=== PATIENT | female | born 1990 | race American Indian/Alaskan Native ===

== ENCOUNTER 2018-04-14 16:31 | Emergency (ER) | payer SELFPAY ==
[2018-04-14 16:44] VITALS: BP 107/75; PULSE 80; RESP 18; TEMP 99.2; O2SAT 97
[2018-04-14] MEDS ORDERED: Amoxicillin-Clav 875-125 mg Tab PO STA (17:15)
[2018-04-14] MEDS ORDERED: Tetanus/Diphtheria Toxoids 0.5 ml Syringe IM ONE ×2 (17:15→17:21)
--- NOTE | 2018-04-14 17:18 | C.PDOC ---
Time Seen by Provider: 04/14/18 17:12 Chief Complaint (Nursing): Upper Extremity Problem/Injury Past Medical History Vital Signs: Last Vital Signs Temp 99.2 F 04/14/18 16:42 Pulse 80 04/14/18 16:42 Resp 18 04/14/18 16:42 BP 107/75 04/14/18 16:42 Pulse Ox 97 04/14/18 16:42 - Social History Hx Alcohol Use: No Hx Substance Use: No ED Course And Treatment O2 Sat by Pulse Oximetry: 97 Disposition - Disposition
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
[2018-04-14] MEDS ORDERED: Amoxicillin-Clav 875-125 mg Tab PO ONE (17:21)
[2018-04-14] MEDS ORDERED: Bacitracin 500 Units/gm Oint Foilpak UD ONE ×2 (17:25→17:29)
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
== END 2018-04-14 17:26 | disposition home or self-care (01) ==
LOC: C.ER 16:31
DX: S61.052A Open bite of left thumb without damage to nail, initial encounter (principal); Y04.1XXA Assault by human bite, initial encounter; Z23 Encounter for immunization

== ENCOUNTER 2018-06-13 02:22 | Emergency (ER) | payer SELFPAY ==
[2018-06-13 02:52] LABS: SQUAMOUS EPITHIAL 6 /hpf (0-5); URINE BILIRUBIN NEGATIVE (NEGATIVE); URINE BLOOD NEGATIVE (NEGATIVE); URINE CLARITY Clear (Clear); URINE COLOR Yellow (YELLOW); URINE GLUCOSE (UA) NORMAL (Normal); URINE LEUKOCYTE ESTERASE NEG Leu/uL (Negative); URINE PROTEIN NEGATIVE (NEGATIVE); URINE UROBILINOGEN NORMAL mg/dL (0.2-1.0)
[2018-06-13] MEDS ORDERED: Sodium Chloride 0.9% 1,000 ML IV ONE (02:57)
[2018-06-13] MEDS ORDERED: Iohexol 240 (50 ml) PO ONE (02:57)
[2018-06-13] MEDS ORDERED: Sodium Chloride 0.9% 1,000 ML ONE (03:10)
[2018-06-13] MEDS ORDERED: Iohexol 240 (50 ml) ONE (03:10)
[2018-06-13 03:13] LABS: HCG,QUALITATIVE URINE NEGATIVE (NEGATIVE)
[2018-06-13 03:39] LABS: BASO % 0.7 % (0.0-2.0); EOS % 0.7 % (0.0-4.0); LYMPH # 1.9 K/uL (1.0-4.3); LYMPH % 30.8 % (20.0-40.0); MEAN CELL VOLUME 85.3 fL (81.0-99.0); MEAN CORPUSCULAR HEMOGLOBIN 28.9 pg (27.0-31.0); MEAN CORPUSCULAR HGB CONC 33.8 g/dL (33.0-37.0); MEAN PLATELET VOLUME 7.3 fL (7.2-11.7); MONO # 0.5 K/uL (0.0-0.8); MONO % 7.8 % (0.0-10.0); NEUT # 3.6 K/uL (1.8-7.0); NRBC % 0.1 % (0.0-2.0); RBC 4.16 Mil/uL (3.80-5.20); RED CELL DISTRIBUTION WIDTH 14.4 % (11.5-14.5)
--- NOTE | 2018-06-13 03:39 | C.PDOC ---
History Of Present Illness 27 year old female presents to the ED c/o LLQ abdominal pain associated with nausea and vomiting that started today. Patient denies fever, chills, diarrhea, dysuria, hematuria, back pain, rash. Chief Complaint (Nursing): Abdominal Pain History Per: Patient History/Exam Limitations: no limitations Onset/Duration Of Symptoms: Hrs Current Symptoms Are (Timing): Still Present Location Of Pain/Discomfort: LLQ Radiation Of Pain To:: None Quality Of Discomfort: "Pain" Associated Symptoms: Nausea, Vomiting. denies: Diarrhea, Urinary Symptoms Exacerbating Factors: None Alleviating Factors: None Recent travel outside of the [place]: No Additional History Per: Patient Abnormal Vaginal Bleeding: No Past Medical History Reviewed: Historical Data, Nursing Documentation, Vital Signs Vital Signs: Last Vital Signs Temp 98.4 F 06/13/18 02:33 Pulse 70 06/13/18 02:33 Resp 20 06/13/18 02:33 BP 114/76 06/13/18 02:33 Pulse Ox 98 06/13/18 05:48 - Medical History PMH: No Chronic Diseases Surgical History: No Surg Hx Family History: States: Unknown Family Hx - Social History Hx Alcohol Use: No Hx Substance Use: No - Immunization History Hx Tetanus Toxoid Vaccination: Yes Hx Influenza Vaccination: No Hx Pneumococcal Vaccination: No Review Of Systems Constitutional: Negative for: Fever, Chills Cardiovascular: Negative for: Chest Pain, Palpitations Respiratory: Negative for: Cough, Shortness of Breath Gastrointestinal: Positive for: Nausea, Vomiting, Abdominal Pain. Negative for : Diarrhea Skin: Negative for: Rash Neurological: Negative for: Weakness, Numbness Physical Exam - Physical Exam Appears: Non-toxic, No Acute Distress Skin: Normal Color, Warm, Dry Head: Atraumatic, Normacephalic Eye(s): bilateral: Normal Inspection Oral Mucosa: Moist Neck: Normal ROM, Supple Chest: Symmetrical Cardiovascular: Rhythm Regular Respiratory: Normal Breath Sounds, No Rales, No Rhonchi, No Wheezing Gastrointestinal/Abdominal: Soft, Tenderness (localized LLQ), No Guarding, No Rebound Extremity: Normal ROM, No Tenderness, No Swelling Neurological/Psych: Oriented x3, Normal Speech Gait: Steady ED Course And Treatment - Laboratory Results Result Diagrams: 06/13/18 03:33 06/13/18 03:13 O2 Sat by Pulse Oximetry: 98 (ON RA) Pulse Ox Interpretation: Normal Medical Decision Making Medical Decision Making: Plan: * CT abd/pelvis * Labs * IV fluids * Toradol 30 mg IVP * UA Disposition Counseled Patient/Family Regarding: Diagnosis - Disposition Referrals: [facility] [Outside] Disposition: HOME/ ROUTINE Disposition Time: 05:44 Condition: STABLE Prescriptions: Dicyclomine [Bentyl] 10 mg PO QID #14 cap Instructions: Acute Abdomen (Belly Pain) Forms: [employer] (Wolof) - POA Present On Arrival: None - Clinical Impression Clinical Impression: Abdominal pain, Enteritis - Scribe Statement The provider has reviewed the documentation as recorded by the Scribe August Domínguez All medical record entries made by the Scribe were at my direction and personally dictated by me. I have reviewed the chart and agree that the record accurately reflects my personal performance of the history, physical exam, medical decision making, and the department course for this patient. I have also personally directed, reviewed, and agree with the discharge instructions and disposition.
[2018-06-13 03:42] LABS: CALCIUM 8.8 mg/dl (8.6-10.4); GFR NON-AFRICAN AMERICAN > 60; LIPASE 113 U/L (23-300)
[2018-06-13 03:45] LABS: ALB/GLOB RATIO 1.1 (1.0-2.1); ALBUMIN 3.6 g/dL (3.5-5.0); ALT/SGPT 13 U/L (9-52); AST/SGOT 30 U/L (14-36); BLOOD UREA NITROGEN 12 mg/dL (7-17)
[2018-06-13] MEDS ORDERED: Iodixanol 320 mg/ml 150 ml Bottle IV ONE (04:25)
[2018-06-13 06:02] VITALS: BP 118/74; PULSE 74; RESP 16; TEMP 98.2; O2SAT 99
--- NOTE | 2018-06-13 11:18 | CT ---
Date of service: 06/13/2018 PROCEDURE: CT Abdomen and Pelvis with contrast HISTORY: LLQ ABD PAIN/TENDERNESS COMPARISON: None. TECHNIQUE: Following oral and intravenous contrast administration, a CT examination of the abdomen and pelvis performed from the domes of the diaphragms to the symphysis pubis with reformatted datasets provided not only axial but also sagittal and coronal series. Contrast dose: Visipaque 320, 100 cc Radiation dose: Total exam DLP = 1047.24 mGy-cm. This CT exam was performed using one or more of the following dose reduction techniques: Automated exposure control, adjustment of the mA and/or kV according to patient size, and/or use of iterative reconstruction technique. FINDINGS: LOWER THORAX: Unremarkable. LIVER: Unremarkable. No gross lesion or ductal dilatation. GALLBLADDER AND BILE DUCTS: Unremarkable. PANCREAS: Unremarkable. No gross lesion or ductal dilatation. SPLEEN: Unremarkable. ADRENALS: Unremarkable. No mass. KIDNEYS AND URETERS: Unremarkable. No hydronephrosis. No solid mass. VASCULATURE: Unremarkable. No aortic aneurysm. BOWEL: No small or large bowel obstruction evident. Shotty central mesenteric lymph nodes are appreciated with solitary right cecal/ascending colon lymph node also not grossly enlarged. No mesenteric edema is associated however limited mesenteric adenitis is difficult to completely exclude. No colonic diverticular disease including the sigmoid segment which is not inflamed. [id number] fecal loading identified. APPENDIX: Normal appendix. PERITONEUM: Unremarkable. No free fluid. No free air. LYMPH NODES: Unremarkable. No enlarged lymph nodes. BLADDER: Unremarkable. REPRODUCTIVE: Unremarkable. BONES: No acute fracture. OTHER FINDINGS: None. IMPRESSION: [id number]-md-[id number] fecal loading is appreciated of the colon. There is also pattern is may reflect early mesenteric adenitis. Clinically correlate further. No other potential acute abdominal or pelvic findings.
== END 2018-06-13 06:02 | disposition home or self-care (01) ==
LOC: C.ER 02:22
DX: K52.9 Noninfective gastroenteritis and colitis, unspecified (principal); R10.32 Left lower quadrant pain
CPT/HCPCS: 74177; 80053; 81001; 83690; 84703; 85025; 96372; 96374; 99284; J0500; J1885; J7030; Q9966; Q9967

== ENCOUNTER 2018-08-13 16:25 | Emergency (ER) | payer OTHER ==
[2018-08-13 16:37] VITALS: BMI 38.2
[2018-08-13 16:38] VITALS: RESP 20
--- NOTE | 2018-08-13 18:03 | C.PDOC ---
History Of Present Illness 28 year old female presents to the ED for evaluation of abdominal pain which began two days ago. Patient was evaluated for similar abdominal pain in May [address] scan. After her symptoms improved, patient was discha rged with instructions to follow up. Patient states her pain improved so she did not follow up. She returns to the ED for evaluation because her pain has reoccurred. She denies fever, chills, nausea, vomiting, and diarrhea. <Soo Rogers - Last Filed: 08/13/18 19:07> History Per: Patient History/Exam Limitations: no limitations Onset/Duration Of Symptoms: Days Current Symptoms Are (Timing): Still Present Location Of Pain/Discomfort: Diffuse Radiation Of Pain To:: None Quality Of Discomfort: "Pain" Associated Symptoms: denies: Fever, Chills, Nausea, Vomiting, Diarrhea Additional History Per: Patient <Soo Rogers - Last Filed: 08/13/18 19:07> <Daniel Gonsalez - Last Filed: 08/13/18 20:11> Chief Complaint (Nursing): Abdominal Pain Past Medical History Reviewed: Historical Data, Nursing Documentation, Vital Signs Vital Signs: Last Vital Signs Temp 98.8 F 08/13/18 16:37 Pulse 75 08/13/18 16:37 Resp 20 08/13/18 16:37 BP 107/74 08/13/18 16:37 Pulse Ox 100 08/13/18 16:37 - Medical History PMH: No Chronic Diseases Surgical History: No Surg Hx Family History: States: Unknown Family Hx - Social History Hx Alcohol Use: No Hx Substance Use: No - Immunization History Hx Tetanus Toxoid Vaccination: Yes Hx Influenza Vaccination: No Hx Pneumococcal Vaccination: Yes <Soo Rogers - Last Filed: 08/13/18 19:07> Vital Signs: Last Vital Signs Temp 98.8 F 08/13/18 16:37 Pulse 75 08/13/18 16:37 Resp 20 08/13/18 16:37 BP 107/74 08/13/18 16:37 Pulse Ox 100 08/13/18 19:07 <Daniel Gonsalez - Last Filed: 08/13/18 20:11> Review Of Systems Constitutional: Negative for: Fever, Chills Gastrointestinal: Positive for: Abdominal Pain. Negative for: Nausea, Vomiting, Diarrhea <Soo Rogers - Last Filed: 08/13/18 19:07> Physical Exam - Physical Exam Appears: Non-toxic, No Acute Distress Skin: Normal Color, Warm, Dry Head: Atraumatic, Normacephalic Eye(s): bilateral: Normal Inspection Oral Mucosa: Moist Neck: Supple Chest: Symmetrical, No Deformity, No Tenderness Cardiovascular: Rhythm Regular, No Murmur Respiratory: Normal Breath Sounds, No Rales, No Rhonchi, No Wheezing Gastrointestinal/Abdominal: Soft, Tenderness (mild, to epigastric and right upper quadrant ), No Guarding, No Rebound Extremity: Normal ROM, Capillary Refill (less than 2 seconds ) Neurological/Psych: Oriented x3, Normal Speech, Normal Cognition <KenSoo - Last Filed: 08/13/18 19:07> ED Course And Treatment - Laboratory Results Result Diagrams: 08/13/18 18:56 O2 Sat by Pulse Oximetry: 100 (on RA ) Pulse Ox Interpretation: Normal Progress Note: Bloodwork, urinalysis, US abdomen ordered and reviewed. Zofran IVP and IV Fluids given. <KenSoo - Last Filed: 08/13/18 19:07> - Laboratory Results Result Diagrams: 08/13/18 18:56 08/13/18 18:56 Pulse Ox Interpretation: Normal Reevaluation Time: 20:10 Reassessment Condition: Improved <SunshineNeelacatarino - Last Filed: 08/13/18 20:11> Disposition - Disposition Disposition Time: 19:07 <KenSoo - Last Filed: 08/13/18 19:07> Counseled Patient/Family Regarding: Studies Performed, Diagnosis, Need For Followup, Rx Given <SunshineNeelacatarino - Last Filed: 08/13/18 20:11> - Disposition Disposition: HOME/ ROUTINE Condition: FAIR Additional Instructions: please return if symptoms recur. 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 - Scribe Statement The provider has reviewed the documentation as recorded by the Scribe (Sandrita Miles) All medical record entries made by the Rose were at my direction and personally dictated by me. I have reviewed the chart and agree that the record accurately reflects my personal performance of the history, physical exam, medical decision making, and the department course for this patient. I have also personally directed, reviewed, and agree with the discharge instructions and disposition. <Soo Rogers - Last Filed: 08/13/18 19:07> Physician Patient Turnover Patient Signed Over To: Daniel Gonsalez Handoff Comments: pending ultrasound <Soo Rogers - Last Filed: 08/13/18 19:07>
[2018-08-13] MEDS ORDERED: Sodium Chloride 0.9% 1,000 ML IV STA (18:06)
[2018-08-13 18:58] LABS: HCG,QUALITATIVE URINE NEGATIVE (NEGATIVE)
[2018-08-13 18:59] LABS: BASO % 0.7 % (0.0-2.0); EOS # 0.1 K/uL (0.0-0.7); EOS % 1.6 % (0.0-4.0); HEMOGLOBIN 12.9 g/dL (11.0-16.0); LYMPH # 2.8 K/uL (1.0-4.3); LYMPH % 45.4 % (20.0-40.0); MEAN CELL VOLUME 84.4 fL (81.0-99.0); MEAN CORPUSCULAR HEMOGLOBIN 28.5 pg (27.0-31.0); MEAN CORPUSCULAR HGB CONC 33.7 g/dL (33.0-37.0); MEAN PLATELET VOLUME 7.2 fL (7.2-11.7); MONO # 0.4 K/uL (0.0-0.8); MONO % 7.3 % (0.0-10.0); NEUT # 2.7 K/uL (1.8-7.0); RBC 4.53 Mil/uL (3.80-5.20); RED CELL DISTRIBUTION WIDTH 14.5 % (11.5-14.5); WHITE BLOOD COUNT 6.1 K/uL (4.8-10.8)
[2018-08-13] MEDS ORDERED: Sodium Chloride 0.9% 1,000 ML ONE (18:59)
[2018-08-13 19:03] LABS: SQUAMOUS EPITHIAL 2 /hpf (0-5); URINE BACTERIA OCC (<OCC); URINE BILIRUBIN NEGATIVE (NEGATIVE); URINE BLOOD 1+ (NEGATIVE); URINE CLARITY Clear (Clear); URINE COLOR Yellow (YELLOW); URINE GLUCOSE (UA) NORMAL (Normal); URINE LEUKOCYTE ESTERASE NEG Leu/uL (Negative); URINE PROTEIN NEGATIVE (NEGATIVE)
[2018-08-13 19:40] LABS: ALB/GLOB RATIO 1.1 (1.0-2.1); ALBUMIN 3.9 g/dL (3.5-5.0); ALT/SGPT 23 U/L (9-52); AST/SGOT 18 U/L (14-36); BLOOD UREA NITROGEN 8 mg/dL (7-17); CALCIUM 9.2 mg/dl (8.6-10.4); GFR NON-AFRICAN AMERICAN > 60; LIPASE 144 U/L (23-300)
[2018-08-13 20:20] VITALS: PULSE 72; TEMP 98.1; O2SAT 72
[2018-08-13 20:31] VITALS: BP 95/62
--- NOTE | 2018-08-14 08:09 | US ---
Right upper quadrant abdominal ultrasound HISTORY: Right upper quadrant abdominal pain. COMPARISON: CT scan dated 06/13/2018 TECHNIQUE: Real-time sonography was performed through the right upper quadrant of the abdomen. FINDINGS: LIVER: 16.3 centimeters in length. Normal echogenicity. GALLBLADDER: No calculi or sludge. Normal wall thickness of 2 millimeters. Negative sonographic Encarnacion's sign. Common bile duct measures 4.2 millimeters, within normal limits. Limited visualization of the pancreas. Visualized aorta and IVC are preserved. RIGHT KIDNEY: 11.5 x 4.1 x 4.3 centimeters. No calculi or hydronephrosis. IMPRESSION: Unremarkable sonographic evaluation of the right upper quadrant of the abdomen. Limited visualization of the pancreas. A preliminary report was generated at 8:04 p.m. on 08/13/[address] Flako Engel from [facility].
== END 2018-08-13 20:40 | disposition home or self-care (01) ==
LOC: C.ER 16:25
DX: R10.13 Epigastric pain (principal)
CPT/HCPCS: 76705; 80053; 81001; 83690; 84703; 85025; 96361; 96374; 99285; J2405; J7030

== ENCOUNTER 2018-12-18 18:24 | Emergency (ER) | payer OTHER ==
[2018-12-18 18:24] VITALS: BMI 38.2
[2018-12-18 18:35] VITALS: TEMP 98.3
--- NOTE | 2018-12-18 19:52 | C.PDOC ---
History Of Present Illness The patient reports 3 day history of left lower 2nd molar pain. The patient reports pain is associated with swelling. Denies fever, trauma, bleeding. Time Seen by Provider: 12/18/18 19:25 Chief Complaint (Nursing): Dental Pain History Per: Patient History/Exam Limitations: no limitations Onset/Duration Of Symptoms: Days (3) Current Symptoms Are (Timing): Still Present Quality: Positive for: "Pain" Recent travel outside of the [place]: No Additional History Per: Patient Past Medical History Reviewed: Historical Data, Nursing Documentation, Vital Signs Vital Signs: Last Vital Signs Temp 98.3 F 12/18/18 18:33 Pulse 65 12/18/18 18:33 Resp 20 12/18/18 18:33 BP 123/75 12/18/18 18:33 Pulse Ox 98 12/18/18 18:33 - Medical History PMH: No Chronic Diseases Surgical History: No Surg Hx Family History: States: Unknown Family Hx - Social History Hx Alcohol Use: No Hx Substance Use: No - Immunization History Hx Tetanus Toxoid Vaccination: Yes Hx Influenza Vaccination: No Hx Pneumococcal Vaccination: Yes Review Of Systems Constitutional: Negative for: Fever ENT: Positive for: Other (dental pain with swelling. no bleeding) Physical Exam - Physical Exam Appears: Non-toxic, No Acute Distress Skin: Normal Color, Warm, No Rash Head: Atraumatic, Normacephalic Eye(s): bilateral: Normal Inspection Oral Mucosa: Moist, No Drooling, No Trismus Teeth: No Loose, Other (Left lower second molar crack with mild swelling and tenderness but no abscess ) Throat: No Erythema, No Exudate Neck: Normal ROM, Supple Cardiovascular: Rhythm Regular Respiratory: Normal Breath Sounds Neurological/Psych: Oriented x3, Normal Speech, Normal Cognition ED Course And Treatment O2 Sat by Pulse Oximetry: 98 (on RA) Pulse Ox Interpretation: Normal Medical Decision Making Medical Decision Making: Plan: Amoxicillin 500mg PO Motrin 800mg PO Disposition - Disposition Referrals: Andres Jensen DMD [Staff Provider] - Disposition: HOME/ ROUTINE Disposition Time: 20:30 Condition: STABLE Additional Instructions: Follow up with the dentist within 1-2 days without fail. return if worsened. Prescriptions: Amoxicillin [Amoxil 500 mg Cap] 500 mg PO TID #29 cap Ibuprofen [Motrin Tab] 800 mg PO TID #20 tab traMADol [Ultram] 50 mg PO Q6 PRN #10 tab PRN Reason: Pain Instructions: Dental Pain (DC) Forms: [employer] [employer] (Bahamian), Work Excuse - Clinical Impression Clinical Impression: Pain, dental, Dental caries - PA / MANAGER MASS / Resident Statement MD/DO has examined the patient and agrees with the treatment plan. - Scribe Statement The provider has reviewed the documentation as recorded by the Rose Burrell All medical record entries made by the Rosangelaibarpan were at my direction and personally dictated by me. I have reviewed the chart and agree that the record accurately reflects my personal performance of the history, physical exam, medical decision making, and the department course for this patient. I have also personally directed, reviewed, and agree with the discharge instructions and disposition.
[2018-12-18] MEDS ORDERED: Amoxicillin-Clav 500-125 mg Tab PO ONE (20:35)
[2018-12-18 20:38] VITALS: BP 122/81; PULSE 67; RESP 18
[2018-12-18 21:52] VITALS: O2SAT 98
== END 2018-12-18 20:38 | disposition home or self-care (01) ==
LOC: C.ER 18:24
DX: K02.9 Dental caries, unspecified (principal)